=== PATIENT | male | born 1975 | race African-American/Black ===

== ENCOUNTER 2023-07-20 09:57 | Emergency (ER) | payer BC, SELFPAY ==
[2023-07-20 10:00] VITALS: BP 194/131
--- NOTE | 2023-07-20 10:06 | ED.GENMED ---
History of Present Illness
<Amelia Villalba PA-C - Last Filed: 07/20/23 11:20>
General
Chief Complaint: Musculo-Skeletal Complaint
Source: patient
Exam Limitations: none
Time Seen by Provider: 07/20/23 10:04
Nursing documentation reviewed up to this point in time: agreed with
Travel History
Have you had any contact with someone who has COVID-19?: No
Do you have any symptoms of coronavirus? Fever > 100 degrees, chills, cough, shortness of breath, sore throat, loss of taste or smell, muscle aches, or headache?: No
History of Present Illness
History of Present Illness:
This is a 47-year-old male with past medical history of obesity who is presenting to the emergency department today with right shoulder pain for the past month. He states that 1 day ago, he woke up and started having the pain. He states that he
thought he slept on it wrong however the pain persisted and he presents today because the pain has gotten progressively worse especially within the past week. He states that the pain is worse with any range of motion, particularly abduction. He
states at home he did try Tylenol and Aleve which did not help with his pain. He states that he is to lift a lot of weights but has not done so within the past year. 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
transfer patients. He denies fevers or chills, chest pain, nausea or vomiting, shortness of breath, recent shoulder injections, shoulder surgery, recent hospitalizations.
Past History
<Amelia Villalba PA-C - Last Filed: 07/20/23 11:20>
Past History
ED Past Medical History: None
Patient has exhibited threatening behavior?: No
Review of Systems
<Amelia Villalba PA-C - Last Filed: 07/20/23 11:20>
Review of Systems
All Other Systems: ROS reviewed and negative except as documented in HPI and ROS
Phy Exam
<Amelia Villalba PA-C - Last Filed: 07/20/23 11:20>
Physical Exam
Physical Exam:
General: Patient is profusely diaphoretic
Skin: Warm and dry no rashes or lesion
Cardiac: Regular rate and rhythm, no murmur
Pulm: Normal respiratory effort
Musculoskeletal: Patient has mild tenderness palpation of the shoulder joint. Patient has full range of motion bilateral shoulder patient has moderate pain with any range of motion of the right shoulder. Supraspinatus strength testing intact
bilaterally. Positive Neer's test of the right shoulder.
Course
<Amelia Villalba PA-C - Last Filed: 07/20/23 11:20>
Orders/Labs/Results
Orders:
Orders
07/20/23 10:19
CR Shoulder - Right Min 2 View Urgent
Comment:
Reason For Exam: right shoulder pain
07/20/23 10:22
Electrocardiogram (*1) Urgent
Reason for Study: Other
Other Reason for Exam: shoulder pain, diaphoresis
EKG- Treatment ONCE
07/20/23 10:27
Vital Signs- Treatment ONCE
Frequency: q30m
Comment: blood pressure check
Vital Signs
Initial and Last Documented VS:
Initial Vital Signs
Temp Pulse Resp BP Pulse Ox
98.4 F 85 18 194/131 97
07/20/23 10:00 07/20/23 10:00 07/20/23 10:00 07/20/23 10:00 07/20/23 10:00
Last Documented Vital Signs
Temp Pulse Resp BP Pulse Ox
98.4 F 82 17 163/130 99
07/20/23 10:00 07/20/23 10:42 07/20/23 10:42 07/20/23 10:42 07/20/23 10:42
<Reginaldo Clarke MD - Last Filed: 07/20/23 11:18>
Orders/Labs/Results
Orders:
Orders
07/20/23 10:19
CR Shoulder - Right Min 2 View Urgent
Comment:
Reason For Exam: right shoulder pain
07/20/23 10:22
Electrocardiogram (*1) Urgent
Reason for Study: Other
Other Reason for Exam: shoulder pain, diaphoresis
EKG- Treatment ONCE
07/20/23 10:27
Vital Signs- Treatment ONCE
Frequency: q30m
Comment: blood pressure check
Vital Signs
Initial and Last Documented VS:
Initial Vital Signs
Temp Pulse Resp BP Pulse Ox
98.4 F 85 18 194/131 97
07/20/23 10:00 07/20/23 10:00 07/20/23 10:00 07/20/23 10:00 07/20/23 10:00
Last Documented Vital Signs
Temp Pulse Resp BP Pulse Ox
98.4 F 82 17 163/130 99
07/20/23 10:00 07/20/23 10:42 07/20/23 10:42 07/20/23 10:42 07/20/23 10:42
<Amelia Villalba PA-C - Last Filed: 07/20/23 11:20>
MDM/Problems Addressed
Differential Diagnosis Includes:
Differentials include rotator cuff tear, impingement syndrome, osteoarthritis, gout
MDM/Problems Addressed:
shoulder pain
Chronic conditions affecting care:
N/A
Acute Exacerbation and/or Progression of Chronic Illness:
N/A
<Amelia Villlaba PA-C - Last Filed: 07/20/23 11:20>
*Pulse Oximetry
Patient hypoxic: no
*Critical Care Note
Total Time (30-74mins, 75-104mins- exclusive of procedures): Not Applicable
Data Reviewed
Review of Other/Old Records Reveals: Records (no previous records to review)
Source: patient
Prescriptions/Medications Considered But Not Given:
Considered treating patient with anti-inflammatory medications however patient states that he usually likes to avoid medication if possible.
Further Testing Considered But Not Given:
n/a
<Amelia Villalba PA-C - Last Filed: 07/20/23 11:20>
Patient Management
Escalation/DeEscalation of care consider admission/obs:
This is a 47-year-old male with past medical history of obesity presents emergency department today with right-sided shoulder pain. The patient pain has been going on for past 3 months is particular worse with abduction. On physical exam, he has a
positive Neer's sign. He works as a home health aide and frequently lifts and transfers patient, I suspect current symptoms are due to rotator cuff impingement from overuse. We have provided him referral for orthopedics and advised him to try
anti-inflammatories for his pain and provide him with shoulder stretching exercises.
<Amelia Villalba PA-C - Last Filed: 07/20/23 11:20>
Update Note
Update Note:
10:15--initially evaluated patient, patient is not interested in pain control at this time states he is not to take medication
11:10--updated patient on normal x-ray findings, stated that this is likely a rotator cuff injury and I recommend anti-inflammatory medication, patient does not want to take the medication at this time, recommended ortho follow up
ED Attending Note
<Amelia Villalba PA-C - Last Filed: 07/20/23 11:20>
-
Portions of this chart may have been created with voice recognition software.� Occasional wrong word or��sound alike� substitutions may have occurred due to the inherent limitations of voice recognition software.
<Reginaldo Clarke MD - Last Filed: 07/20/23 11:18>
ED Attending Note
Patient seen and examined by attending physician: Yes
ED Attending Note:
Patient presents to ED secondary to persistent right shoulder pain over the past 1 month. Denies direct trauma. Denies fever or chills. Denies recent change in level activities. Patient does work as a home health aide, requiring lifting and
moving patient. Denies loss of sensation or weakness. Denies previous history of shoulder pain. Denies neck pain. Denies loss of sensation or weakness.
Physical Exam
General: no apparent distress, not acutely ill. afebrile
Head: nc/at. eomi
Neck: supple. normal range of motion.
Neuro: alert and oriented. no focal neurological deficits
Skin: no rash
Psychiatric: well kept. interactive and cooperative
Extremities: right shoulder tenderness elicited with passive ROM, without ecchymosis/swelling/erythema.
X-ray: no acute findings
History/exam consistent with likely shoulder strain vs rotator cuff injury from repetitive use. Otherwise, patient is afebrile and neurologically intact at time of discharge.
Discharge Plan
Departure
Patient Disposition: Home (Routine Discharge)
Date of Disposition: 07/20/23
Time of Disposition: 11:12
Patient with high blood pressure during this ER visit?: Yes
Condition: Good
Discharge Problem:
Rotator cuff impingement syndrome
Instructions: Rotator Cuff Injury (DC), Overuse Injuries (DC), Rotator Cuff Tear Exercises
Referrals:
Aren Mcmahon MD [Active] - Call in 1-3 days for appt
Leena Porter MD [Family Provider] -
Activity Restrictions/Additional Instructions:
We have given you a referral for an orthopedist. Please call the office for an appointment.
Please take ibuprofen acetaminophen for pain control, this also help decrease inflammation.
Please return emergency department for any concerns, please follow-up with your primary care provider.
Interventions
Interventions:
*Risk Screen - Suicide Last Done: 07/20/23 10:02
*General Assessment Last Done: 07/20/23 10:02
*Neglect/Abuse Screening Last Done: 07/20/23 10:02
ED- Cardiac Assessment Last Done: 07/20/23 10:42
ED-Musculoskeletal Assessment Last Done: 07/20/23 10:42
ED- Neurological Assessment Last Done: 07/20/23 10:42
ED- Pulmonary Assessment Last Done: 07/20/23 10:42
[2023-07-20 10:42] VITALS: BP 163/130
== END 2023-07-20 11:32 | disposition home or self-care (01) ==
LOC: EMR 09:57
PROVIDERS: EMERGENCY PHYSICIAN Emergency Medicine; FAMILY PHYSICIAN Internal Medicine
DX: M75.41 Impingement syndrome of right shoulder (principal); M25.511 Pain in right shoulder; R61 Generalized hyperhidrosis; M25.811 Other specified joint disorders, right shoulder
CPT/HCPCS: 99284; 73030; 93005

== ENCOUNTER 2023-09-22 14:05 | Emergency (ER) | payer BC, SELFPAY ==
[2023-09-22 14:10] VITALS: BP 215/137
== END 2023-09-22 14:42 | disposition left against medical advice (07) ==
LOC: EMR 14:05
PROVIDERS: EMERGENCY PHYSICIAN Emergency Medicine
DX: R07.89 Other chest pain (principal); Z53.21 Procedure and treatment not carried out due to patient leaving prior to being seen by health care provider
CPT/HCPCS: 93005

== ENCOUNTER 2024-10-14 17:31 | Emergency (ER) | payer BC, SELFPAY ==
[2024-10-14 17:45] VITALS: BP 216/128
[2024-10-14 18:12] VITALS: BP 170/107
[2024-10-14 18:29] LABS: ALT (SGPT) 21 U/L (0-50); AST (SGOT) 21 U/L (17-59); Albumin 4.5 g/dl (3.5-5.0); Alkaline Phosphatase 83 U/L (38-126); Blood Urea Nitrogen 6 mg/dl (9-20); Calcium 9.3 mg/dl (8.4-10.2); Carbon Dioxide 30 mmol/L (22-30); Chloride 100 mmol/L (98-107); Glucose 101 mg/dl (70-99); Potassium 4.1 mmol/L (3.5-5.1); Sodium 140 mmol/L (135-145); Total Protein 7.8 g/dl (6.3-8.2); eGFR > 60.00
[2024-10-14 18:30] VITALS: BP 170/107
[2024-10-14 18:36] LABS: % Basophils 0.3 % (0-2); % Eosinophils 1.1 % (0-6); % Immature Granulocytes 0.2 % (0-0.5); % Lymphocytes 68.7 % (20.5-51.1); % Monocytes 5.4 % (1.7-9.3); % Neutrophils 24.3 % (42.2-75.2); Absolute Eosinophils 0.2 10^3/uL (0-0.7); Absolute Monocytes 0.7 10^3/uL (0.1-0.6); Absolute Neutrophils 3.2 10^3/uL (1.4-6.5); Hematocrit 41.2 % (39.0-52.0); Hemoglobin 13.4 g/dL (13.0-18.0); Mean Corp Hgb Conc. 32.5 g/dL (33.0-37.0); Mean Corpuscular Hgb 27.5 pg (27.0-31.0); Mean Corpuscular Volume 84.4 fL (80.0-94.0); Nucleated Red Blood Cells % 0 % (-); Platelet Count 323 10^3/uL (130-400); Red Blood Cell Count 4.88 10^6/uL (4.70-6.10); Red Cell Dist. Width 13.2 % (11.5-14.5); White Blood Cell Count 13.1 10^3/uL (4.8-10.8)
[2024-10-14 18:39] LABS: Troponin I < 0.012 ng/ml
[2024-10-14 19:00] VITALS: BP 173/107
--- NOTE | 2024-10-14 19:29 | ED.GENMED ---
History of Present Illness
General
Chief Complaint: Chest Pain
Time Seen by Provider: 10/14/24 18:52
History of Present Illness
History of Present Illness:
48-year-old male with history of hypertension presenting for left-sided chest pain. Patient reports symptoms for the past week. Denies exertional component. Denies any present pain. Describes the pain as a soreness. Denies difficulty breathing.
Denies nausea, vomiting, abdominal pain. Reports that he had gone to blood pressure medications, however has not taken either in over a month. He also has not seen his primary care physician for a while. Denies personal history of cardiac
disease. Denies any family history. Denies fever or recent illness. Denies additional medical complaints
Past History
Past History
ED Past Medical History: None
Patient has exhibited threatening behavior?: No
Phy Exam
Physical Exam
Physical Exam:
General: Morbidly obese, no clinical signs of dehydration, nontoxic and in no acute distress
HEENT: protecting airway
Neck: appears supple
CV: Normal heart rate, regular rhythm
Resp: No accessory muscle use, no increased work of breathing, lungs clear to auscultation bilaterally
Abd: Soft and non-distended, no tenderness to palpation
Extremities: No deformities, no swelling
Neuro: alert, no focal neurologic deficit
: deferred
Rectal: deferred
Psych: Normal affect
Skin: Intact
Scores
Heart Score for Chest Pain Patients
STEMI patient?: No
History: Slightly or Non-Suspicious
ECG: Normal
Age: >45 - <65 years
Risk Factors: 1 or 2 Risk Factors
Troponin: </= Normal Limit
Heart Score for Chest Pain Patients: 2
Heart Score Risk: 2.5% MACE over next 6 weeks
Course
Orders/Labs/Results
Orders:
Orders
10/14/24 17:51
Electrocardiogram (*1) Urgent
Reason for Study: Chest Pain
10/14/24 17:52
EKG- Treatment ONCE
10/14/24 18:03
Complete Blood Count/With Diff Urgent
Comprehensive Metabolic Panel Urgent
Troponin I Urgent
Abnormal Lab Results
10/14/24
18:03
WBC 13.1 H 10^3/uL
(4.8-10.8)
MCHC 32.5 L g/dL
(33.0-37.0)
MPV 11.0 H fL
(7.4-10.4)
Absolute Lymphs (auto) 9.0 H 10^3/uL
(1.2-3.4)
Absolute Monos (auto) 0.7 H 10^3/uL
(0.1-0.6)
Neutrophils % 24.3 L %
(42.2-75.2)
Lymphocytes % 68.7 H %
(20.5-51.1)
BUN 6 L mg/dl
(9-20)
Glucose 101 H mg/dl
(70-99)
10/14/24 18:03
10/14/24 18:03
Vital Signs
Initial and Last Documented VS:
Initial Vital Signs
Temp Pulse Resp BP Pulse Ox
98.5 F 80 20 216/128 98
10/14/24 17:45 10/14/24 17:45 10/14/24 17:45 10/14/24 17:45 10/14/24 17:45
Last Documented Vital Signs
Temp Pulse Resp BP Pulse Ox
98.5 F 77 20 170/107 98
10/14/24 17:45 10/14/24 18:30 10/14/24 17:45 10/14/24 18:30 10/14/24 17:45
MDM/Problems Addressed
MDM/Problems Addressed:
48-year-old male with history of untreated hypertension presenting for chest pain. Vital signs on arrival significant for hypertension.
On exam patient is resting comfortably, no acute distress, currently asymptomatic. Unremarkable cardiac and pulmonary exam. EKG obtained, nonischemic. Patient had laboratory analysis obtained prior to my assessment, negative troponin. At this
time low risk by heart score and reassuring that he is asymptomatic. However, he is markedly hypertensive, however suspected secondary to uncontrolled hypertension, noncompliant with medications. He has not remember what medications he supposed to
be on. Blood pressure has improved slightly since arrival to the hospital without intervention. He believes one of his medications with hydrochlorothiazide, so will restart hydrochlorothiazide. At this time feel stable for discharge, however
explained to patient that he will require close outpatient cardiology follow-up for potential stress testing and management of his blood pressure. Will also give information for primary care. Prescription provided for hydrochlorothiazide.
Educated on importance of compliance with his medications to prevent heart attack and stroke. Return precautions discussed and patient verbalized understanding
*EKG
Interpreted by ED Provider?: Yes
EKG Intrepretation Date: 10/14/24
EKG Intrepretation Time: 19:33
Interpretation: normal
Comparison EKG: no changes (09/22/23)
Heart Rate: 76
Rate: normal
Rhythm: sinus
[place]: normal axis
Interval: normal interval
QRS Pattern: normal QRS
Ischemia: no ischemia
*Critical Care Note
Total Time (30-74mins, 75-104mins- exclusive of procedures): Not Applicable
ED Attending Note
-
Portions of this chart may have been created with voice recognition software.� Occasional wrong word or��sound alike� substitutions may have occurred due to the inherent limitations of voice recognition software.
Discharge Plan
Departure
Referrals:
NONE,* [Family Provider] -
Interventions
Interventions:
*Risk Screen - Suicide Last Done: 10/14/24 17:51
*ED COVID-19 Vaccine History Last Done: 10/14/24 17:51
Discharge Date and Time
Print Language: SINHALA
[2024-10-14] MEDS: ORETIC 25 MG PO (19:53)
== END 2024-10-14 20:07 | disposition home or self-care (01) ==
LOC: EMR 17:31
PROVIDERS: EMERGENCY PHYSICIAN Student in an Organized Health Care Education/Training Program
DX: R07.89 Other chest pain (principal); I10 Essential (primary) hypertension; T46.5X6A Underdosing of other antihypertensive drugs, initial encounter; Z91.148 Patient's other noncompliance with medication regimen for other reason
CPT/HCPCS: 99283; 80053; 84484; 85025; 93005

== ENCOUNTER 2024-11-05 18:29 | Emergency (ER) | payer BC, SELFPAY ==
[2024-11-05 18:32] VITALS: BP 190/128
[2024-11-05 19:11] LABS: ALT (SGPT) 26 U/L (0-50); AST (SGOT) 23 U/L (17-59); Albumin 4.2 g/dl (3.5-5.0); Alkaline Phosphatase 64 U/L (38-126); Blood Urea Nitrogen 7 mg/dl (9-20); Calcium 9.5 mg/dl (8.4-10.2); Carbon Dioxide 31 mmol/L (22-30); Chloride 105 mmol/L (98-107); Glucose 109 mg/dl (70-99); Potassium 4.4 mmol/L (3.5-5.1); Sodium 141 mmol/L (135-145); Total Bilirubin 0.9 mg/dl (0.2-1.3); Total Protein 7.5 g/dl (6.3-8.2); eGFR > 60.00
[2024-11-05 19:12] LABS: Lipase 88 U/L (23-300)
[2024-11-05 19:19] LABS: Hematocrit 39.9 % (39.0-52.0); Hemoglobin 13.2 g/dL (13.0-18.0); Mean Corp Hgb Conc. 33.1 g/dL (33.0-37.0); Mean Corpuscular Hgb 27.8 pg (27.0-31.0); Mean Corpuscular Volume 84.2 fL (80.0-94.0); Mean Platelet Volume 11.5 fL (7.4-10.4); Platelet Count 278 10^3/uL (130-400); Red Blood Cell Count 4.74 10^6/uL (4.70-6.10); Red Cell Dist. Width 13.2 % (11.5-14.5); White Blood Cell Count 11.2 10^3/uL (4.8-10.8)
[2024-11-05 19:20] LABS: Troponin I < 0.012 ng/ml
[2024-11-05 20:35] LABS: % Basophils 0.5 % (0-2); % Eosinophils 1.6 % (0-6); % Lymphocytes 76.4 % (20.5-51.1); % Monocytes 7.8 % (1.7-9.3); % Neutrophils 13.7 % (42.2-75.2); Absolute Basophils 0.1 10^3/uL (0-0.2); Absolute Eosinophils 0.2 10^3/uL (0-0.7); Absolute Lymphocytes 8.6 10^3/uL (1.2-3.4); Absolute Monocytes 0.9 10^3/uL (0.1-0.6); Absolute Neutrophils 1.5 10^3/uL (1.4-6.5); Nucleated Red Blood Cells % 0.2 % (-)
== END 2024-11-05 23:12 ==
LOC: EMR 18:29
PROVIDERS: Student in an Organized Health Care Education/Training Program
DX: R10.9 Unspecified abdominal pain (principal); R51.9 Headache, unspecified
CPT/HCPCS: 80053; 83690; 84484; 85025; 93005

== ENCOUNTER → 2024-11-08 08:08 | Outpatient (REF) | payer BC, SELFPAY | LOC: RCS 08:08 | PROVIDERS: ATTENDING PHYSICIAN Internal Medicine Cardiovascular Disease; FAMILY PHYSICIAN Internal Medicine | DX: R07.89 Other chest pain (principal); R06.09 Other forms of dyspnea | CPT/HCPCS: 93306; Q9950 ==